=== PATIENT | male | born 1960 ===

== ENCOUNTER 2021-05-18 22:21 | Observation (INO) ==
[2021-05-19] MEDS ORDERED: Naloxone 0.4 MG/ML INJ IVP PRN ×2 (01:23→16:43)
[2021-05-19] MEDS ORDERED: Melatonin 3 MG TABLET PO PRN ×2 (01:23→16:43)
[2021-05-19] MEDS ORDERED: Ondansetron 4 MG/2 ML VIAL IVP PRN ×2 (01:23→16:43)
[2021-05-19 05:27] LABS: Basophils % 0.2 %; Eosinophils % 0.5 %; Hematocrit 37.2 % (37.5-50.1); Hemoglobin 12.5 g/dL (12.9-16.9); Immature Granulocytes % 0.3 % (0-4); Lymphocytes # 1.4 K/mcL (0.6-4.6); Lymphocytes % 15.5 %; Mean Corpuscular HGB Conc 33.6 g/dL (31.6-35.5); Mean Corpuscular Hemoglobin 30.4 pg (28.0-33.3); Mean Corpuscular Volume 90.5 fL (83.0-100.0); Mean Platelet Volume 10.8 fL (9.4-12.4); Monocytes # 0.6 K/mcL (0.0-1.3); Monocytes % 6.2 %; Neutrophils # 6.8 K/mcL (1.6-8.9); Platelet Count 200 K/mcL (140-400); Red Blood Count 4.11 M/mcL (4.19-5.50); Red Cell Distribution Width 13.1 % (11.5-14.5); Segmented Neutrophils % 77.3 %; White Blood Count 8.9 K/mcL (4.3-11.1)
[2021-05-19 05:45] LABS: Albumin/Globulin Ratio 1.6 (1.1-2.2); Bilirubin,Total 0.6 mg/dL (0.3-1.0); Calcium 8.5 mg/dL (8.6-10.3); Globulin 2.5 g/dL (2.4-3.5); Magnesium 1.5 mg/dL (1.6-2.6); Phosphorous 2.6 mg/dL (2.7-4.5); Potassium 4.2 mEq/L (3.5-5.1); Total Protein 6.5 g/dL (6.4-8.9)
[2021-05-19] MEDS ORDERED: *HR* Dextrose 50 % in Water (Syg) 50 ML SYRINGE IVP PRN ×2 (07:25→16:43)
[2021-05-19] MEDS ORDERED: 0.9 % Sodium Chloride 1,000 ML IVC ONE (07:25)
[2021-05-19] MEDS ORDERED: Dextrose Gel 15 GM/37.5 ML TUBE PO PRN ×4 (07:25→16:43)
[2021-05-19] MEDS ORDERED: D5% in Water 1,000 ML IVC PRN ×2 (07:25→16:43)
[2021-05-19] MEDS ORDERED: Insulin LISPRO 300 UNITS/3 ML VIAL SUBQ SCH (12:00)
[2021-05-19] MEDS ORDERED: Insulin LISPRO 300 UNITS/3 ML VIAL SUBQ ONE (12:05)
[2021-05-19] MEDS ORDERED: ROPIVACAINE/PF/NS 0.25% 1 EACH SYRINGE INTRAART ONE (12:11)
[2021-05-19] MEDS ORDERED: *HR* FentaNYL (PF) 100 MCG/2 ML VIAL ONE (12:11)
[2021-05-19] MEDS ORDERED: Ropivacaine/PF 0.5% 30 ML VIAL ONE (12:11)
[2021-05-19] MEDS ORDERED: *HR* Propofol 200 MG/20 ML VIAL IVP ONE (12:19)
[2021-05-19] MEDS ORDERED: Lidocaine -MPF 2% 5 ML VIAL ONE (12:20)
[2021-05-19] MEDS ORDERED: Lidocaine HCL 4 ML Topical Solution (Laryng-O-Jet Kit Sterile Pak) TP ONE (12:26)
[2021-05-19] MEDS ORDERED: *HR* Succinylcholine 200 MG/10 ML VIAL IVP ONE (12:26)
[2021-05-19] MEDS ORDERED: *HR* FentaNYL (PF) 100 MCG/2 ML VIAL IVP PRN (12:28)
[2021-05-19] MEDS ORDERED: *HR* HYDROmorphone PF 0.5 MG/0.5 ML SYRINGE IVP PRN (12:28)
[2021-05-19] MEDS ORDERED: Insulin Human Regular 300 UNIT/3 ML per UNIT SUBQ ONE (12:30)
[2021-05-19] MEDS ORDERED: Bupivacaine/EPI 1:200k 0.25% 50 ML VIAL ONE (12:39)
[2021-05-19] MEDS ORDERED: Ondansetron 4 MG/2 ML VIAL ONE (13:22)
[2021-05-19] MEDS ORDERED: Acetaminophen IV 1,000 MG/100 ML BAG IVPB ONE (13:55)
[2021-05-19] MEDS ORDERED: dexmedeTOMIDine in 0.9 % NaCL 80 MCG/20 ML MLS ONE (13:56)
[2021-05-19] MEDS ORDERED: ceFAZolin 2,000 MG in 0.9 % Sodium Chloride 100 ML IVPB SCH (16:00)
[2021-05-19] MEDS: Insulin LISPRO 300 UNITS/3 ML VIAL SUBQ SCH (17:12)
[2021-05-19] MEDS ORDERED: Morphine Sulfate 2 MG/ML SYRINGE IVP ONE (20:06)
[2021-05-19] MEDS: CeFAZolin 2,000 MG/120 ML BAG IVPB SCH (20:30)
[2021-05-20] MEDS: Insulin LISPRO 300 UNITS/3 ML VIAL SUBQ SCH ×4 (01:23→18:01)
[2021-05-20] MEDS: CeFAZolin 2,000 MG/120 ML BAG IVPB SCH (06:09)
[2021-05-20 09:32] LABS: Basophils % 0.2 %; Eosinophils % 0.5 %; Hematocrit 34.1 % (37.5-50.1); Hemoglobin 11.6 g/dL (12.9-16.9); Immature Granulocytes % 0.2 % (0-4); Lymphocytes # 1.1 K/mcL (0.6-4.6); Mean Corpuscular Hemoglobin 30.7 pg (28.0-33.3); Mean Corpuscular Volume 90.2 fL (83.0-100.0); Mean Platelet Volume 10.1 fL (9.4-12.4); Monocytes # 0.6 K/mcL (0.0-1.3); Monocytes % 6.9 %; Neutrophils # 6.3 K/mcL (1.6-8.9); Platelet Count 199 K/mcL (140-400); Red Blood Count 3.78 M/mcL (4.19-5.50); Segmented Neutrophils % 78.2 %; White Blood Count 8.1 K/mcL (4.3-11.1)
[2021-05-20] MEDS ORDERED: *HR* HYDROcodone/Acet 5/325 mg TABLET PO PRN (09:44)
[2021-05-20 09:47] LABS: Calcium 8.5 mg/dL (8.6-10.3)
[2021-05-20] MEDS ORDERED: Ringers Solution, Lactated 1,000 ML IVC SCH (13:15)
[2021-05-20] MEDS: carvediloL 25 MG TABLET PO SCH (20:37)
[2021-05-21] MEDS: Insulin LISPRO 300 UNITS/3 ML VIAL SUBQ SCH ×3 (01:08→12:29)
[2021-05-21 05:18] LABS: Hemoglobin 10.5 g/dL (12.9-16.9)
[2021-05-21 07:09] LABS: Calcium 8.6 mg/dL (8.6-10.3); Magnesium 1.5 mg/dL (1.6-2.6); Phosphorous 2.4 mg/dL (2.7-4.5); Potassium 3.9 mEq/L (3.5-5.1)
[2021-05-21] MEDS: carvediloL 25 MG TABLET PO SCH (07:48)
[2021-05-21] MEDS ORDERED: amLODIPine 5 MG TABLET PO SCH (09:00)
[2021-05-21] MEDS ORDERED: Aspirin Enteric Coated 81 MG Tablet PO SCH (09:00)
[2021-05-21] MEDS ORDERED: Magnesium Oxide 400 MG TABLET PO SCH (09:00)
[2021-05-21] MEDS ORDERED: Fenofibrate 54 MG TABLET PO SCH (09:00)
[2021-05-21 13:34] LABS: Adenovirus Not Detected (Not Detect); Bordetella Pertussis Not Detected (Not Detect); Chlamydophila pneumoniae Not Detected (Not Detect); Coronavirus 229E Not Detected (Not Detect); Coronavirus HKU1 Not Detected (Not Detect); Coronavirus NL63 Not Detected (Not Detect); Coronavirus OC43 Not Detected (Not Detect); Human Metapneumovirus Not Detected (Not Detect); Human Rhinovirus/Enterovirus Not Detected (Not Detect); Influenza A Subtype 2009 H1 Not Detected (Not Detect); Influenza B Not Detected (Not Detect); Mycoplasma pneumoniae Not Detected (Not Detect); Parainfluenza Virus 1 Not Detected (Not Detect); Parainfluenza Virus 2 Not Detected (Not Detect); Parainfluenza Virus 3 Not Detected (Not Detect); Parainfluenza Virus 4 Not Detected (Not Detect); Respiratory Syncytial Virus Not Detected (Not Detect); SARS-CoV-2 Not Detected (Not Detect)
[2021-05-21 13:54] VITALS: BP 119/73; PULSE 93; TEMP 98.6; O2SAT 96
== END 2021-05-21 15:44 ==
LOC: 4WAOSI → SUATTDRO 05-19 01:01
PROVIDERS: ADMIT Family Medicine; ATTEND Internal Medicine